=== PATIENT | male | born 1975 | race African-American/Black ===

== ENCOUNTER 2016-10-04 16:51 | Emergency (ER) | payer OTHER ==
[~2016-10-04 16:51] MED LIST: ALBUTEROL17 GM INH; BACTRIM DS TABL1 TA1 PO; BACTRIM DS TABL1 TAB PO; KEFLEX500 MG PO; LISINOPRIL PO; LOPRESSOR PO; NO MEDICATIONS; PERCOCET 51 UDTAB 5/ PO; PREDNISONE PO; SYMBICORT INHALER
== END 2016-10-04 17:33 | disposition home or self-care (01) ==
LOC: SED 16:51
DX: L03.012 Cellulitis of left finger (principal); Z79.899 Other long term (current) drug therapy; Z87.891 Personal history of nicotine dependence
CPT/HCPCS: 10060; 99283

== ENCOUNTER 2016-12-23 | Emergency (ER) | payer OTHER ==
--- NOTE | ~2016-12-23 | EKG ---
PATIENT: AYDEN BILLY UNIT #: [id number] Ventricular Rate: 58 BPM Atrial Rate: 58 BPM P-R Interval: 228 ms QRS Duration: 96 ms Q-T Interval: 406 ms QTC Calculation(Bezet): 398 ms P Armstrong: 84 degrees Calculated R Armstrong: 26 degrees Calculated T Armstrong: 15 degrees Diagnosis Line: Sinus bradycardia with 1st degree A-V block Diagnosis Line: Incomplete right bundle branch block Diagnosis Line: Anteroseptal infarct (cited on or before Diagnosis Line: 14-SEP-2015) Diagnosis Line: Abnormal ECG Diagnosis Line: When compared with ECG of 14-SEP-2015 21:51, Diagnosis Line: MI interval has increased Diagnosis Line: Left anterior fascicular block is no longer Diagnosis Line: Present Diagnosis Line: QT has shortened Diagnosis Line: Confirmed by MANA JORGE MD ([id number]) on Diagnosis Line: 12/26/2016 8:30:40 AM INTERPRETING MD: ANIA JHA
--- NOTE | ~2016-12-23 | CR63 ---
[facility]. [facility] A Service of [facility] & [facility] RADIOLOGY TEXT RESULTS PATIENT: AYDEN BILLY LOCATION: SED : 71 UNIT #: [id number] AGE: [address]: Eddi Milelr MD SEX: M ORDER DR: [id number] [place] [id number] E MR#: [id number] Acc #: [id number] NAME: AYDEN BILLY : 1975 SEX: M STUDY DATE/TIME: UNIT: SED ROOM: STUDY DESCRIPTION: CR Chest 2 View Attending Physician: Eddi Miller M.D. Ordering Physician: Eddi Miller M.D. Primary Care Physician: [facility] MEDICAL IMAGING REPORT This report is preliminary unless electronic signature is present. EXAM Chest x-ray 235 INDICATIONS Acute chest pain since midnight this evening. Former smoker. TECHNIQUE/COMPARISON 2 views of the chest are compared with 09/14/2015 FINDINGS Lungs remain emphysematous but clear. No pneumothorax. There is mild cardiomegaly. IMPRESSION Mild cardiomegaly emphysema. No acute findings in the chest. Dictated by... Isauro Robles Jr., M.D. THIS IS AN ELECTRONICALLY VERIFIED REPORT Isauro Robles Jr., M.D. at 12/23/2016 9:24 PM RLK/gayle TD: 12/23/2016 10:51 JOB #: [id number] MEDICAL IMAGING REPORT Page 1 of 1
[2016-12-23 01:27] LABS: BASOPHIL% 0.3 % (0-2.5); EOSINOPHIL# 0.2 X10e3 (0-0.7); HEMATOCRIT 35.9 % (38.0-50.0); LYMPHOCYTE# 3.6 X10e3 (1.0-3.5); MEAN CORPUSCULAR HEMOGLOBIN 32.3 PG (28-34); MEAN CORPUSCULAR HGB CONC 33.3 g/dL (30-36); MEAN PLATELET VOLUME 7.6 FL (6.5-11.5); MONOCYTE# 0.8 X10e3 (0-1.0); MONOCYTE% 8.2 % (3.0-12.0); NEUTROPHIL# 4.7 X10e3 (1.5-7.1); NEUTROPHIL% 50.5 % (40-75); PLATELET COUNT 235 X10e3 (140-420); RED CELL DISTRIBUTION WIDTH 12.8 % (11.0-15.5); WHITE BLOOD COUNT 9.2 X10e3 (4.0-10.5)
[2016-12-23 01:28] LABS: DIFF IND NO
[2016-12-23 01:46] LABS: POC - CKMB <1.0 ng/mL (0.0-7.9); POC - TROPONIN <0.05 ng/mL (<=0.05)
[2016-12-23 01:47] LABS: ALBUMIN SERUM 4.4 g/dL (3.5-5.0); BILIRUBIN, DIRECT 0.3 mg/dL (0.0-0.2); BILIRUBIN,INDIRECT 1.1 mg/dL (0.0-0.9); BILIRUBIN,TOTAL 1.4 mg/dL (0.2-2.0); CALCIUM SERUM 9.2 mg/dL (8.4-10.2); GLOM FILT RATE Estimated 106.4 mL/min (>60); POTASSIUM 3.2 mmol/L (3.5-5.1); PROTEIN TOTAL SERUM 7.2 g/dL (6.0-8.3)
[2016-12-23 03:23] LABS: POC - CKMB <1.0 ng/mL (0.0-7.9); POC - TROPONIN <0.05 ng/mL (<=0.05)
== END 2016-12-23 03:48 | disposition home or self-care (01) ==
LOC: SED
PROVIDERS: Emergency Medicine
DX: R07.89 Other chest pain (principal); I10 Essential (primary) hypertension; J45.909 Unspecified asthma, uncomplicated; Z79.899 Other long term (current) drug therapy
CPT/HCPCS: 36415; 71020; 80048; 80076; 82553; 83690; 84484; 85025; 85379; 93005; 96374; 96375; 99284; J1885; J2405